=== PATIENT | male | born 1975 | race Caucasian/White ===

== ENCOUNTER 2018-03-24 13:08 | Emergency (ER) | payer MEDICARE, SELFPAY ==
[2018-03-24 13:09] VITALS: BP 169/109; PULSE 117; RESP 18; TEMP 36.9; O2SAT 99; BMI 33.1
--- NOTE | 2018-03-24 13:35 | ED.VISSUMM ---
- ER Visit Summary Date of Service: 03/24/18 Chief Complaint: [Possible ingestion of rat poison] History of Present Illness: The patient is a 43 M [presents the emergency department with complaint of possibly ingesting rat poison about an hour ago. Patient states that he had some Decon pellets that he was going to put out on a bench next to him. The pellets were next to a box of M&Ms. Patient states that he was blindly picking what he thought were M&Ms and eating them until he had a funny taste in his mouth and then he be became concerned that he may have eaten some of the pellets. Patient cannot tell me how many pellets he thinks he ate. When patient looked at the pellets in the tray there were still quite a few pellets in the tray. There were also some pellets scattered on the table next to them. Patient just states that he feels funny and hot.] Patient denies feeling suicidal or depressed. Patient was not attempting to harm himself. Physical Examination: [HEENT-PERRLA, EOMI. Cranial nerves II through XII grossly intact. TMs clear. Mucous membranes moist. No adenopathy. Cardiovascular-regular rate and rhythm without murmur or ectopy Lungs-clear to auscultation, chest wall stable without crepitus or subcu emphysema Abdomen-normoactive bowel sounds, soft, nontender, no rebound or rigidity, no peritoneal signs. Extremities-intact ?4, normal range of motion, normal pulses, atraumatic] Test Results: [None indicated] Emergency Department Course and Treatment: [I discussed case with poison control and given patient history it is extremely unlikely that he ate enough to cause any issues. The Decon pellets do have a long-acting anticoagulant in them and I was asked to advised the patient that if he should have easy bruising or bleeding from the gums to follow-up with primary care physician or return to the emergency department to have blood work done. Even if the patient had eaten half the pellets in the tray it would be unlikely that he would have a significant poisoning.] Treatment Plan: [Follow-up with primary care physician 3-5 days] Disposition: [Discharged home in stable condition] Impression: [Ingestion-benign] This note was generated with [employer] dictation software. It may contain incorrect words, spelling, and punctuation that were not noted in review of the chart prior to signing ED Disposition - Plan for ED Patient: Referrals: Renny Ash DO [Primary Care Provider] -
--- NOTE | 2018-03-24 13:39 | ED.DEP ---
ED Disposition - Plan for ED Patient: Instructions: ED Overdose Accidental Referrals: Renny Ash DO [Primary Care Provider] - 3-5 Days
== END 2018-03-24 13:40 | disposition home or self-care (01) ==
LOC: ED 13:39
PROVIDERS: Emergency Provider Emergency Medicine; Family Provider Student in an Organized Health Care Education/Training Program; PCP Student in an Organized Health Care Education/Training Program
DX: Z03.6 Encounter for observation for suspected toxic effect from ingested substance ruled out (principal); Z72.0 Tobacco use
CPT/HCPCS: 99282

== ENCOUNTER 2018-03-26 21:26 | Emergency (ER) | payer MEDICARE, SELFPAY ==
[2018-03-26 21:27] VITALS: BP 134/78; PULSE 106; RESP 14; TEMP 37.2; O2SAT 96; BMI 34.4
[2018-03-26 22:36] LABS: Absolute Lymphocyte Count 2.69 X10^3/ul (0.83-4.51); Absolute Neutrophil Count 5.2 X10^3/uL (2.0-7.7); Basophil# 0.03 X10^3/uL; Basophil% 0.3 % (0-1); Eosinophil# 0.15 X10^3/uL; Eosinophils% 1.7 % (0-5); Hematocrit 41.5 % (40-54); Hemoglobin 14.1 g/dl (13.0-16.5); Lymphocyte # 2.69 X10^3/ul (4.0); Lymphocyte % 30.2 % (19-41); Mean Corpuscular Hgb 29.5 pg (27.0-32.0); Mean Corpuscular Volume 86.8 fL (80-94); Mean Platelet Vol. 9.3 fl (6.2-12.0); Monocyte# 0.86 X10^3/uL; Monocyte% 9.6 % (0-10); Neutrophil # 5.17 X10^3/uL (2.7-7.7); Platelet Count 235 K/mm3 (150-450); RBC Distribution Width CV 12.9 % (11.6-14.6); RBC Distribution Width SD 41.1 fl (35.1-43.9); Red Blood Count 4.78 M/mm3 (4.6-6.2); White Blood Count 8.9 K/mm3 (4.4-11.0)
[2018-03-26 22:37] LABS: POSITIVE COUNT NO; POSITIVE DIFFERENTIAL NO; POSITIVE MORPHOLOGY NO
[2018-03-26 22:43] LABS: International Normalized Ratio 1.1; Prothrombin Time (Protime)PT. 13.9 SECONDS (11.7-14.9)
[2018-03-26 22:48] LABS: Anion Gap 7 (5-15); BUN 10 mg/dL (7-18); BUN/Creat Ratio 11.7 RATIO (10-20); Calcium,Total 8.3 mg/dL (8.5-10.1); Chloride 106 mmol/L (98-107); Creatinine, Serum 0.86 mg/dL (0.70-1.30); EST Glomerular Filtration Rate 105 mL/min (>60); Est Glom Filt Rate - Afr Amer 127 mL/min (>60); Estimated Creatinine Clearance 116.72 ml/min; Glucose 143 mg/dL (74-106); Potassium 3.3 mmol/L (3.5-5.1); Sodium Level 137 mmol/L (136-145)
--- NOTE | 2018-03-26 22:52 | ED.DCSUM_ITS ---
- ER Visit Summary Date of Service: 03/26/18 Chief Complaint: I feel hot and sweaty. History of Present Illness: The patient is a 43 M who complains of 2 days of a sensation of his skin burning. He states he feels like he is being poked with something hot. He does have a history of prior similar symptoms and was admitted to [facility] at that time. He does have a history of schizophrenia. He also admits to methamphetamine use. He denies fever chest pain shortness of breath vomiting diarrhea. Physical Examination: Afebrile heart rate 106 vitals otherwise unremarkable Heart regular rhythm slightly tachycardic Lungs are clear Abdomen soft Alert Test Results: Labs notable for potassium 3.3 otherwise normal. Emergency Department Course and Treatment: Workup as above unremarkable. I suspect this is most likely related to his drug use and possibly related to underlying mental health disorder. He was advised to follow-up as an outpatient. I do not see an indication for hospitalization. He understands to return for new or worsening symptoms. Treatment Plan: [] Disposition: Discharge Impression: Disturbance of skin sensation This note was generated with [employer] dictation software. It may contain incorrect words, spelling, and punctuation that were not noted in review of the chart prior to signing ED Disposition - Plan for ED Patient: Referrals: Renny Ash DO [Primary Care Provider] -
--- NOTE | 2018-03-26 22:53 | ED.DEP ---
ED Disposition - Plan for ED Patient: Referrals: Renny Ash DO [Primary Care Provider] - Additional Instructions: He was seen for a burning sensation in your skin. Your blood work was unremarkable. Follow-up with your primary care physician.
[2018-03-26 22:58] VITALS: PULSE 94; RESP 16
== END 2018-03-26 22:58 | disposition home or self-care (01) ==
PROVIDERS: Emergency Provider Emergency Medicine; Family Provider Student in an Organized Health Care Education/Training Program; PCP Student in an Organized Health Care Education/Training Program
DX: R20.8 Other disturbances of skin sensation (principal); F20.9 Schizophrenia, unspecified; F15.90 Other stimulant use, unspecified, uncomplicated; Z79.899 Other long term (current) drug therapy; Z72.0 Tobacco use
CPT/HCPCS: 80048; 85025; 85610; 99282; A4216

== ENCOUNTER 2019-06-03 19:59 | Emergency (ER) | payer MEDICARE, MEDICAID, SELFPAY ==
[2019-06-03 20:00] VITALS: BP 156/93; PULSE 104; RESP 18; TEMP 37.1; O2SAT 100; BMI 32.9
--- NOTE | 2019-06-03 20:24 | ED.VISSUMM ---
- ER Visit Summary Date of Service: 06/03/19 Chief Complaint: Penile burning History of Present Illness: The patient is a 44 M history of schizophrenia. No prior STD. Patient states his been with the same sexual partner for at least 3 months. He denies any discharge or dysuria. Says he just noticed today he had burning of his urethra. Denies prior history. Denies any other symptoms. Physical Examination: Middle-aged male no acute distress vital signs stable afebrile. H EENT exam unremarkable. Lungs are clear. Heart regular rhythm no murmur. Abdomen soft nontender. Patient is moving all 4 extremities. No edema. External exam normal. Circumcised male. No discharge. No bleeding. Testicles nontender. No masses. No swelling. No lymphadenopathy. No lesions. Test Results: None Emergency Department Course and Treatment: Discussed with patient he may or may not have a urethritis. There is no discharge. There is really nothing that test at this time. He was given the options of [id number] and follow-up if symptoms do not resolve versus treatment. He wanted to be treated at this time. He will be given p.o. Zithromax and IM Rocephin. Treatment Plan: Follow-up if symptoms persist Disposition: Discharge Impression: Acute urethritis This note was generated with [employer] dictation software. It may contain incorrect words, spelling, and punctuation that were not noted in review of the chart prior to signing ED Disposition - Plan for ED Patient: Referrals: Renny Ash DO [Primary Care Provider] -
--- NOTE | 2019-06-03 20:27 | ED.DEP ---
ED Disposition - Plan for ED Patient: Disposition: Home or Assisted Living Instructions: Urethritis in Men Referrals: Renny Ash DO [Primary Care Provider] - 1 Week if not improving Additional Instructions: You were treated with the 2 antibiotics. If your symptoms do not improve follow-up with your primary care physician.
[2019-06-03] MEDS: Azithromycin 250 MG Tablet 500 MG PO (21:08)
[2019-06-03] MEDS: Ceftriaxone 500 MG Vial 250 MG IM (21:08)
== END 2019-06-03 21:31 | disposition home or self-care (01) ==
PROVIDERS: Emergency Provider Emergency Medicine; PCP Student in an Organized Health Care Education/Training Program
DX: N34.2 Other urethritis (principal); F20.9 Schizophrenia, unspecified; Z79.899 Other long term (current) drug therapy; Z72.0 Tobacco use
CPT/HCPCS: 96372; 99282

== ENCOUNTER 2019-09-15 01:27 | Emergency (ER) | payer MEDICARE, MEDICAID, SELFPAY ==
[2019-09-15 01:28] VITALS: BP 154/105; PULSE 106; RESP 16; TEMP 36.4; O2SAT 98; BMI 33.1
[2019-09-15] MEDS: Naproxen 500 MG Tablet PO (01:52)
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
== END 2019-09-15 02:57 | disposition home or self-care (01) ==
PROVIDERS: Emergency Provider Emergency Medicine; PCP Student in an Organized Health Care Education/Training Program
DX: S16.1XXA Strain of muscle, fascia and tendon at neck level, initial encounter (principal); V89.2XXA Person injured in unspecified motor-vehicle accident, traffic, initial encounter; Y93.9 Activity, unspecified; Y92.9 Unspecified place or not applicable; F20.9 Schizophrenia, unspecified; Z79.899 Other long term (current) drug therapy; F17.200 Nicotine dependence, unspecified, uncomplicated
CPT/HCPCS: 72040; 99283

== ENCOUNTER 2019-11-19 13:58 | Emergency (ER) | payer MEDICARE, MEDICAID, SELFPAY ==
[2019-11-19 13:59] VITALS: BP 130/79; PULSE 98; RESP 16; TEMP 36.3; O2SAT 98; BMI 31.5
--- NOTE | 2019-11-19 14:25 | ED.DCSUM_ITS ---
- ER Visit Summary Date of Service: 11/19/19 Chief Complaint: Hematuria History of Present Illness: The patient is a 44 M who presents with hematuria that began today. Patient states he noted some red blood at the end of his urine stream today. Patient states this is happened a couple times. Patient states it is usually at the end of his urine stream. Patient admits to some abdominal pain. Patient denies any flank pain. Patient denies any dysuria or frequency. Patient denies any fevers or chills. Patient denies any nausea or vomiting. Physical Examination: Vital signs are stable. Patient is afebrile. Patient is in no acute distress. Oral mucosa is pink and moist. Neck is supple. Trachea is midline. There is no JVD noted. Heart was regular rate and rhythm. Lungs are clear and equal bilaterally. Abdomen is soft. Bowel sounds are normal. There is no tenderness. There is no rebound or guarding noted. There is no CVA tenderness noted. Skin is warm dry. Cranial nerves II through XII are intact. There are no focal motor or sensory deficits noted. Extremities are intact. There is no calf tenderness or edema. Test Results: CBC was essentially within normal limits. Comprehensive metabolic profile showed a mild hypokalemia of 3.3. Glucose was slightly elevated at 131. CT scan of the abdomen and pelvis was obtained. There is evidence of mesenteric adenitis. But there is no mass noted. This was interpreted by the radiologist and reviewed by myself. Urinalysis showed leukocyte esterase of 100 with 10-25 white blood cells. Occult blood was 50 with 5-10 red blood cells. GC and Chlamydia cultures were ordered and are pending. Emergency Department Course and Treatment: Patient was given Rocephin and Zithromax here. Patient was given a prescription for Keflex. Patient was instructed to follow-up with his primary care physician in 5 to 7 days. Patient understood and was agreeable with the plan. All questions were answered. Disposition: Discharge home Impression: 1. Urinary tract infection This note was generated with [employer] dictation software. It may contain incorrect words, spelling, and punctuation that were not noted in review of the chart prior to signing ED Disposition - Plan for ED Patient: Disposition: Home or Assisted Living Diagnosis: Urinary tract infection Instructions: ED CYSTITIS Male Adult, ED Urethritis Infec Vs Inflam Adult Male Prescriptions: Cephalexin [Keflex] 500 mg PO Q6 #20 cap Prescription Printed Referrals: Renny Ash DO [Primary Care Provider] - 5-7 Days
[2019-11-19 14:40] LABS: Absolute Lymphocyte Count 1.74 X10^3/uL (0.83-4.51); Absolute Neutrophil Count 3.9 X10^3/uL (2.0-7.7); Basophil# 0.04 X10^3/uL; Basophil% 0.6 % (0-1); Eosinophil# 0.16 X10^3/uL; Eosinophils% 2.5 % (0-5); Hematocrit 38.6 % (40-54); Hemoglobin 12.9 g/dL (13.0-16.5); Lymphocyte # 1.74 X10^3/ul (4.0); Lymphocyte % 27.4 % (19-41); Mean Corp Hgb Conc 33.4 g/dL (32-36); Mean Corpuscular Hgb 29.5 pg (27.0-32.0); Mean Corpuscular Volume 88.3 fL (80-94); Mean Platelet Vol. 9.4 fl (6.2-12.0); Monocyte% 7.9 % (0-10); NRBC Flagged by Analyzer 0 % (0-5); Neutrophil # 3.89 X10^3/uL (2.7-7.7); Neutrophil % 61.4 % (47-70); Platelet Count 232 K/mm3 (150-450); RBC Distribution Width CV 12.7 % (11.6-14.6); RBC Distribution Width SD 41.1 fl (35.1-43.9); Red Blood Count 4.37 M/mm3 (4.6-6.2); White Blood Count 6.3 K/mm3 (4.4-11.0)
--- NOTE | 2019-11-19 14:40 | CT_ITS ---
STUDY: CT ABDOMEN AND PELVIS WITHOUT CONTRAST REASON FOR EXAM: Male, 44 years old. HEMATURIA RADIATION DOSAGE (If Supplied By Facility): CTDIvol = ( 16.23 ) mGy, DLP = ( 855.66 ) mGycm TECHNIQUE: Transaxial images were obtained from the dome of the diaphragm to the symphysis pubis without oral contrast, and without intravenous contrast. Sagittal and coronal images were reconstructed. Individualized dose optimization techniques were used for this CT. COMPARISON: None. FINDINGS: The visualized lung bases are unremarkable. The visualized portions of the heart are within normal limits. Normal liver. Normal gallbladder and extrahepatic biliary system. Normal spleen. Normal pancreas. Normal bilateral adrenal glands. Normal right kidney. Normal left kidney. There is a small hiatal hernia. Normal small intestine. Normal colon. The appendix is visualized and appears normal. Small lymph nodes are seen in the mesenteric fat in the right lower quadrant suggestive of mesenteric adenitis. Normal abdominal aorta. Normal inferior vena cava. There is borderline retroperitoneal lymphadenopathy with enlarged nodes no greater than 10mm in the short axis diameter. Normal urinary bladder. Small bilateral inguinal hernias containing fat. There are mild degenerative changes of the visualized lumbar spine. CT/Abdomen/Pelvis without Cont IMPRESSION: Findings suggestive of mesenteric adenitis. Electronically Signed: pS Whipple, at 15:00 EDT , Service support ,
[2019-11-19 14:55] LABS: ALB/GLOB Ratio 1.2 RATIO (0.9-2.4); AST(SGOT) 14 U/L (15-37); Alanine Aminotransfer ALT/SGPT 22 U/L (16-61); Albumin, Serum 3.6 g/dL (3.2-5.0); Alkaline Phosphatase 65 U/L (45-117); Anion Gap 2 (5-15); BUN 10 mg/dL (7-18); Calcium,Total 8.4 mg/dL (8.5-10.1); Chloride 108 mmol/L (98-107); EST Glomerular Filtration Rate 87 mL/min (>60); Est Glom Filt Rate - Afr Amer 105 mL/min (>60); Estimated Creatinine Clearance 99.36 ml/min; Globulin 2.9 g/dL (2.2-4.2); Glucose 131 mg/dL (74-106); Potassium 3.3 mmol/L (3.5-5.1); Protein, Total 6.5 g/dL (6.4-8.2); Sodium Level 140 mmol/L (136-145)
[2019-11-19 15:45] LABS: Bacteria 0 SEEN /hpf (None Seen); Squamous Epithelial Cells - UA 0 SEEN /hpf (0-5)
[2019-11-19 15:55] LABS: Color, Urine Yellow (Yellow); Glucose, Dipstick Normal (Normal); Ketone-Dipstick 5 mg/dl (Negative); Leukocyte Esterase-Dipstick 100 /ul (Negative); Nitrite-Dipstick Negative (Negative); Occult Blood-Urine 50 /ul (Negative); Protein-Dipstick Negative (Negative); Urine Bilirubin Dipstick Negative (Negative); Urine Clarity Sl. Cloudy (Clear); Urine Urobilinogen Normal (Normal)
[2019-11-19 16:13] LABS: Mucous, Urine 3+ /hpf (<or=2+)
[2019-11-19 16:14] LABS: Red Blood Cells-Urine 5-10 SEEN /hpf (0-5)
[2019-11-19 16:15] LABS: White Blood Cells 10-25 SEEN /hpf (0-5)
[2019-11-19 16:17] LABS: Hyaline Cast 0-5 SEEN /lpf (0-5)
[2019-11-19 18:07] LABS: Chlamydia Trachomatis by PCR POSITIVE (Negative); Neisserai gonorrhoeae by PCR Negative (Negative); Probe Check PASS
[2019-11-19] MEDS: Azithromycin 250 MG Tablet 1000 MG PO (18:28)
[2019-11-19 18:37] VITALS: RESP 18
[2019-11-19 18:48] VITALS: BP 130/87; PULSE 98; RESP 15; O2SAT 98
== END 2019-11-19 18:49 | disposition home or self-care (01) ==
PROVIDERS: Emergency Provider Emergency Medicine; PCP Student in an Organized Health Care Education/Training Program
DX: N39.0 Urinary tract infection, site not specified (principal); R31.9 Hematuria, unspecified; E87.6 Hypokalemia
CPT/HCPCS: 74176; 80053; 81001; 85025; 87491; 87591; 96372; 99284

== ENCOUNTER 2020-05-18 01:43 | Emergency (ER) | payer MEDICARE, MEDICAID, SELFPAY ==
[2020-05-18 01:44] VITALS: BP 162/97; PULSE 92; RESP 18; TEMP 36.5; O2SAT 98; BMI 34.9
--- NOTE | 2020-05-18 02:19 | ED.VIS.EYE ---
History of Present Illness Chief Complaint: Eye Problem Informant: Patient Location: Right Eye Onset: Today - JPTA Context: Sudden Onset Timing: Continuous Current Severity: Moderate Maximum Severity: Moderate Worsened by: opening eye Relieved by: closing eye Associated Symptoms - Eyes: Foreign body sensation, Pain, - - watering History of injury: Yes, Grinding injury - grinding metal motor; no safety glasses; pt was in his own garage Visual correction: Glasses - no contacts Narrative: No vision changes. No other injury. Past Medical History - Allergies and Home Meds Allergies/Adverse Reactions: Allergies No Known Allergies Allergy (Verified 11/19/19 13:59) Primary Care Physician: Renny Ash DO [Primary Care Provider] - Past Medical History: None Lives: Spouse/ Significant Other Smoking Status: Current every day smoker Review of Systems General: Denies: Chills, Fever, Sweats Eyes: Reports: - - pain and watering R eye. no changes in vision, but blurry due to not having his glasses on. Skin: Denies: Rash, Wounds Neurological: Denies: Headache, Weakness, Numbness Physical Exam Visual Acuity: right: 20/50 - 20/50 right eye and left eye individually, bilateral: 20/40 Visual Acuity: Uncorrected Eyelid: Normal inspection, Right eyelid everted, No foreign body Right Conjunctiva/Sclera: Normal inspection, - - fine, mobile debris present Right Cornea: Tetracaine instilled - in order to facilitate exam, Fluorescein dye uptake, Foreign body - 9 O'clock punctate piece of metal, - - neg Luis Alfredo sign Left Cornea: Normal inspection, No foreign body Extraocular Motion: Normal exam, No pain, No palsy, No nystagmus Pupils: Normal accomodation, PERRL Anterior chamber: Normal exam, Deep and quiet Vital Signs/Narrative: Vital Signs Temp Pulse Resp BP Pulse Ox 05/18/20 01:44 97.7 F L 92 18 162/97 H 98 General: Well nourished, Well developed, - - NAD Head: Normocephalic, Atraumatic Skin: Normal color, No rash, No Trauma Neurological: Alert, Oriented x3, Cranial nerves II-XII grossly intact, Normal Strength, Normal Sensation, Normal Gait Psychological: Normal affect, Normal Mood Diagnostic/Tx/Re-eval - Treatment and Re-Evaluation Foreign body removal: Cotton tip swab - Removed, Eye ciera - Dislodged Residual rust ring: No Irrigation: - - Eyewash station Tetracaine: right eye Antibiotic: right eye - Medical Decision Making Corneal foreign body appeared to be roman, without a rust ring. Patient confirms he was grinding copper which is consistent with the appearance of the small metallic foreign body. Fine debris was washed out at the eyewash station. Reevaluation with floor seen shows very small area of uptake where the foreign body was with no Luis Alfredo sign and no other signs of an abrasion. Given appropriate discharge instructions with bacitracin ophthalmic which was placed in his eye prior to discharge. ED Disposition - Plan for ED Patient: Disposition: Home or Assisted Living Diagnosis: Foreign body of right cornea Instructions: ED Corneal Foreign Body, Removed Referrals: Renny Ash DO [Primary Care Provider] - Henry Ríos MD [STAFF PHYSICIAN] - 3-5 Days if not improving Additional Instructions: Use a thin ribbon of antibiotic ointment in the affected eye 3 times daily until not bothersome anymore, about 3 or 4 days.
[2020-05-18] MEDS: Fluorescein 1 MG STRIP 1 STRIP RIGHT EYE (03:00)
[2020-05-18] MEDS: Tetracaine 0.5% Ophthalmic Bottle 3 DRP RIGHT EYE (03:53)
[2020-05-18 03:55] VITALS: RESP 15
== END 2020-05-18 03:55 | disposition home or self-care (01) ==
PROVIDERS: Emergency Provider Emergency Medicine; PCP Student in an Organized Health Care Education/Training Program
DX: T15.01XA Foreign body in cornea, right eye, initial encounter (principal); X58.XXXA Exposure to other specified factors, initial encounter; Y93.9 Activity, unspecified; Y92.9 Unspecified place or not applicable; F17.200 Nicotine dependence, unspecified, uncomplicated
CPT/HCPCS: 99283

== ENCOUNTER 2023-09-24 17:44 | Emergency (ER) | payer MEDICARE, MEDICAID, SELFPAY ==
[2023-09-24 17:45] VITALS: BP 139/87; PULSE 100; RESP 18; TEMP 36.6; O2SAT 97; BMI 32.2
--- NOTE | 2023-09-24 18:10 | ED.VIS.CHEST ---
HPI History of Present Illness Chief Complaint: Chest Other [facility] Medical History no medical history Home Medications ?Medication ?Instructions ?Recorded ?Last Taken ?Type paliperidone palmitate 234 mg/1.5 1 dose IM QMONTH 03/26/18 Unknown History mL intramuscular syringe (Invega Sustenna) Allergy/AdvReac Type Severity Reaction Status Date / Time No Known Allergies Allergy Verified 09/24/23 17:45 Social History Smoking Status: Current every day smoker tobacco type: cigarettes EXAM Physical Exam Const Vital Signs: 09/24/23 17:45 09/24/23 18:10 Temperature 97.9 F Temperature Source Temporal Pulse Rate 100 Respiratory Rate 18 Respiratory Effort Normal Non-Labored Blood Pressure 139/87 H Blood Pressure Mean 104 Pulse Ox 97 Oxygen Delivery Method Room Air MDM MDM [facility] Narrative Medical decision making narrative: HISTORY OF PRESENT ILLNESS: 48-year-old male presents with concern for red area on left chest. He states Denies chest pain or shortness of breath. The patient denies recent surgery in the last 4 weeks or immobilization in the last 3 days, denies previous diagnosis of DVT or PE, hemoptysis, unilateral leg swelling or malignancy with treatment the last 6 months or palliative. No estrogen use noted. Patient denies sudden onset of pain, no tearing sensation, no migratory symptoms, no new numbness, weakness or loss of sensation. Patient denies family history or personal history of Connective tissue disorders (Marfan's Syndrome, Filippo Danlos etc) REVIEW OF SYSTEMS: Pertinent positives: Red area to left chest Pertinent negatives: Chest pain, shortness of breath, cough, fever, chills PHYSICAL EXAM: Nursing triage notes reviewed, Vital signs reviewed Constitutional: please see mdm Neck: No stridor, no JVD, full neck ROM Lungs: Clear to auscultation, No wheezing or rales. No increased work of breathing, no conversational dyspnea, no accessory muscle use, no nasal flaring. No respiratory distress noted Heart: Regular rate and rhythm, No murmurs, No rubs and No gallops, 2+ distal pulses (radial, femoral, posterior tibial) in all extremities Skin: No rash or lesions noted MEDICAL DECISION MAKING: Chief Complaint: Red area to left chest MDM Narrative: Patient was initially hemodynamically stable, afebrile and nontoxic-appearing. Exam with apparent further removal substance with alcohol pad to the left chest. This is some type of dye stain. There is no sign of infection or cellulitis. He has no anya chest pain or shortness of breath. He has no PE risk factors or aortic dissection risk factors. Denies any drug use. Area was removed with alcohol prep pad. Patient is given home-going hygiene instructions. The patient and/or family, caregivers express understanding. The patient and/or family, caregivers agrees with the plan. Shared decision making: I will have a discussion with the patient and or visitors regarding risk/benefits of further testing or admission. They will be made aware of of the risk/benefits inherent in this decision they will be given the opportunity to voice understanding. Total critical care time today provided was at least 0 [] minutes. This excludes separately billable procedures. Critical care time (if documented) is secondary to the patient having high probability of clinically significant/life threatening deterioration in the patient's condition which required my urgent intervention. Impression: 1. Skin stain Dispo: dc This note was generated with [employer] dictation software. It may contain incorrect words, spelling, and punctuation that were not noted in review of the chart prior to signing. Discharge Plan Triage Chief Complaint: Chest Other ED Provider: Wil Wu Dx/Rx/DC Orders Prescriptions: No Action Invega Sustenna 234 mg/1.5 mL syringe 1 dose IM QMONTH Patient Comments: Inject 234 mg intramuscularly every four weeks Primary Care Provider: Renny Ash Referrals: Renny Ash, DO [Primary Care Provider] - Print Language: Portuguese
[2023-09-24 19:25] VITALS: BP 132/74; PULSE 85; RESP 16; TEMP 36.8; O2SAT 96
== END 2023-09-24 19:27 | disposition home or self-care (01) ==
PROVIDERS: Emergency Provider Emergency Medicine; PCP Student in an Organized Health Care Education/Training Program; Visit Provider Emergency Medicine
DX: L81.9 Disorder of pigmentation, unspecified (principal); F17.210 Nicotine dependence, cigarettes, uncomplicated
CPT/HCPCS: 99282